=== PATIENT | female | born 1985 | race Caucasian/White ===

== ENCOUNTER 2024-03-05 11:04 | Emergency (ER) | payer MEDICAID ==
[~2024-03-05] VITALS: Ht 152.4 cm; Wt 59.1 kg
[2024-03-05 11:07] VITALS: TEMP 97.5
[2024-03-05] MEDS: metoclopramide 5 mg/ml inj IV ONE (12:27)
[2024-03-05] MEDS: diphenhydrAMINE 50 mg/ml inj IV ONE (12:27)
[2024-03-05] MEDS: normal saline 1000ML IV soln IVB ONE ×2 (12:27)
[2024-03-05] MEDS: haloperidol lactate 5mg/ml inj IM ONE (12:28)
[2024-03-05 12:38] LABS: BASOPHILS % (AUTO) 0.1 % (0-1); EOSINOPHILS % (AUTO) 0 % (0-6); HEMATOCRIT 38.6 % (35.0-45.0); HEMOGLOBIN 13.1 g/dl (12.0-16.0); LYMPHOCYTES # (AUTO) 0.9 X10'3 (1.1-4.8); MEAN CORPUSCULAR HEMOGLOBIN 29.5 PG (27.0-31.0); MEAN CORPUSCULAR HGB CONC 33.8 g/dL (33.0-36.5); MEAN CORPUSCULAR VOLUME 87.3 FL (78-98); MEAN PLATELET VOLUME 9.6 FL (7.4-10.4); MONOCYTES # (AUTO) 1.1 X10'3 (0-0.9); MONOCYTES % (AUTO) 7.5 % (2-12); NEUTROPHILS # (AUTO) 12.4 X10'3 (1.8-7.7); NEUTROPHILS % (AUTO) 86.4 % (42-75); PLATELET COUNT 307 X10'3 (140-440); RED BLOOD COUNT 4.43 X10'6 (4.20-5.60); RED CELL DISTRIBUTION WIDTH 14.4 % (11.5-14.5); WHITE BLOOD COUNT 14.4 X10'3 (4.5-11.0)
[2024-03-05 12:48] LABS: ALANINE AMINOTRANSFERASE 19 U/L (12-78); ALBUMIN 4.3 G/DL (3.4-5.0); ALBUMIN/GLOBULIN RATIO 1.2 (1.1-1.5); ALKALINE PHOSPHATASE 55 IU/L (46-116); ANION GAP 16 (8-16); ASPARTATE AMINO TRANSFERASE 12 U/L (10-37); BILIRUBIN,TOTAL 0.9 MG/DL (0.1-1.0); BLOOD UREA NITROGEN 16 MG/DL (7-18); CALCIUM 9.7 MG/DL (8.5-10.1); CHLORIDE 108 MMOL/L (99-107); CREATININE 0.94 MG/DL (0.40-0.90); GLUCOSE 159 MG/DL (70-104); LIPASE 53 U/L (16-77); POTASSIUM 3.4 MMOL/L (3.5-5.1); SODIUM 144 MMOL/L (135-145); TOTAL CARBON DIOXIDE 19.8 MMOL/L (24-32); eCRCL 57 ML/MIN; eGFR 66 ML/MIN
[2024-03-05 13:17] LABS: BILIRUBIN,URINE SMALL (Neg); CLARITY,URINE CLOUDY (Clear); COLOR,URINE YELLOW (Yellow); GLUCOSE, URINE NEGATIVE (Neg); KETONES,URINE >=80 mg/dl (Neg); LEUKOCYTE ESTERASE ,URINE NEGATIVE (Neg); NITRITES, URINE NEGATIVE (Neg); OCCULT BLOOD,URINE NEGATIVE (Neg); PROTEIN,URINE 100 mg/dl (Neg); UROBILINOGEN,URINE 0.2 E.U/dL (0.2-1.0)
[2024-03-05 13:19] LABS: UA COLLECTION TYPE NON-SPECIFIED
[2024-03-05 13:25] LABS: BACTERIA,URINE 2+ /HPF (Neg); MUCUS STRANDS FEW /LPF (Neg); RBC,URINE 0-2 /HPF (0-2); RENAL CELLS, URINE FEW /HPF; SQUAMOUS EPITHELIAL CELL,UR MANY /LPF (FEW); TRANSITIONAL EPI CELLS,URINE FEW /HPF; WBC,URINE 0-4 /HPF (0-4)
[2024-03-05] MEDS: ringers solution, lactated 1000ml IV soln IV ONE (14:59)
[2024-03-05 17:28] VITALS: BP 135/71; PULSE 66; RESP 14; O2SAT 94
== END 2024-03-05 17:45 | disposition home or self-care (01) ==
LOC: ER 11:04
DX: R11.15 Cyclical vomiting syndrome unrelated to migraine (principal); K21.9 Gastro-esophageal reflux disease without esophagitis; Z98.890 Other specified postprocedural states
CPT/HCPCS: 36415; 80053; 81001; 83690; 84145; 85025; 96361; 96372; 96374; 96375; 99285; J1200; J1630; J2765; J7030; J7120

== ENCOUNTER 2024-04-14 12:46 | Inpatient (IN) | payer MEDICAID ==
[~2024-04-14] VITALS: Ht 152.4 cm; Wt 64.4 kg
[2024-04-14] MEDS ORDERED: pantoprazole 40mg IV 80 MG in normal saline 100ml IV soln 100 ML IV ONE (14:00)
[2024-04-14 15:05] LABS: BASOPHILS % (AUTO) 0.1 % (0-1); EOSINOPHILS % (AUTO) 0 % (0-6); HEMATOCRIT 42.3 % (35.0-45.0); HEMOGLOBIN 14.1 g/dl (12.0-16.0); LYMPHOCYTES # (AUTO) 0.5 X10'3 (1.1-4.8); LYMPHOCYTES % (AUTO) 2.7 % (21-51); MEAN CORPUSCULAR HEMOGLOBIN 29.4 PG (27.0-31.0); MEAN CORPUSCULAR HGB CONC 33.3 g/dL (33.0-36.5); MEAN CORPUSCULAR VOLUME 88.2 FL (78-98); MEAN PLATELET VOLUME 8.8 FL (7.4-10.4); MONOCYTES # (AUTO) 0.4 X10'3 (0-0.9); MONOCYTES % (AUTO) 2.1 % (2-12); NEUTROPHILS # (AUTO) 16.9 X10'3 (1.8-7.7); NEUTROPHILS % (AUTO) 95.1 % (42-75); PLATELET COUNT 391 X10'3 (140-440); RED CELL DISTRIBUTION WIDTH 14.9 % (11.5-14.5); WHITE BLOOD COUNT 17.8 X10'3 (4.5-11.0)
[2024-04-14 15:15] LABS: APTT 22 SECONDS (22-32); PROTHROMBIN TIME 10.9 SECONDS (9.0-12.0)
[2024-04-14 15:22] LABS: ALBUMIN 4.6 G/DL (3.4-5.0); AMYLASE 73 U/L (25-115); ANION GAP 19 (8-16); BLOOD UREA NITROGEN 12 MG/DL (7-18); CHLORIDE 104 MMOL/L (99-107); GLUCOSE 225 MG/DL (70-104); LIPASE 18 U/L (16-77); POTASSIUM 3.7 MMOL/L (3.5-5.1); SODIUM 142 MMOL/L (135-145); TOTAL CARBON DIOXIDE 18.7 MMOL/L (24-32); eCRCL 54 ML/MIN; eGFR 61 ML/MIN
[2024-04-14] MEDS: normal saline 1000ml 1,000 ML IV ONE (15:38)
[2024-04-14] MEDS: pantoprazole 40 MG vial IV ONE (15:38)
[2024-04-14] MEDS: ondansetron/PF 4mg/2ml inj IV ONE (15:46)
[2024-04-14] MEDS: morphine 4 MG/ML inj SYRINge IV ONE (15:46)
[2024-04-14] MEDS ORDERED: iohexol 300mg/ml 100ml inj. ONE (16:07)
[2024-04-14 16:37] LABS: ALANINE AMINOTRANSFERASE 18 U/L (12-78); ALBUMIN/GLOBULIN RATIO 1.1 (1.1-1.5); ALKALINE PHOSPHATASE 80 IU/L (46-116); ASPARTATE AMINO TRANSFERASE 18 U/L (10-37); BILIRUBIN,DIRECT 0.1 MG/DL (0-0.3); BILIRUBIN,TOTAL 0.6 MG/DL (0.1-1.0); TOTAL PROTEIN 8.8 G/DL (6.4-8.2)
[2024-04-14] MEDS: HYDROmorphone inj. 0.5 MG/0.5 ML DISP.SYRIN IV ONE (16:43)
[2024-04-14] MEDS ORDERED: VENL37.58 PO (16:54)
[2024-04-14] MEDS ORDERED: magnesium sulf-water 4G/100mL 100 ML IV PRN (17:40)
[2024-04-14] MEDS ORDERED: magnesium sulf-water 2g/50mL 50 ML IV PRN (17:40)
[2024-04-14] MEDS ORDERED: magnesium Cl slow-release 64mg tablet PO PRN (17:40)
[2024-04-14] MEDS ORDERED: potassium Cl 20 mEq SR tablet PO PRN ×2 (17:40)
[2024-04-14] MEDS ORDERED: magnesium hydroxide 30ml (MOM) UD suspension PO PRN (17:40)
[2024-04-14] MEDS ORDERED: mag hydrox/Alum hydrox/simeth 30ml oral suspension PO PRN (17:40)
[2024-04-14] MEDS: normal saline 1000ml 1,000 ML IV SCH (19:54)
[2024-04-14] MEDS: docusate sod 100mg capsule PO SCH (19:55)
[2024-04-14] MEDS: pantoprazole 40 MG vial IV SCH (19:55)
[2024-04-14] MEDS ORDERED: acetaminophen 325mg tablet PO PRN (20:25)
[2024-04-14] MEDS ORDERED: morphine 2 MG/ML inj. syringe IV PRN (20:25)
[2024-04-14] MEDS: morphine 2 MG/ML inj. syringe IV PRN (20:56)
[2024-04-14] MEDS: K and/or MAG REPLACEMENT MC SCH (20:57)
[2024-04-14] MEDS ORDERED: ONDA-243 PO (22:20)
[2024-04-14 22:30] VITALS: BP 135/84; PULSE 92; RESP 19; RESP 20; TEMP 98; O2SAT 96; O2SAT 97
[2024-04-14] MEDS: metoclopramide 5 mg/ml inj IV PRN (23:44)
[2024-04-15] MEDS ORDERED: acetaminophen 325mg tablet PO PRN (00:20)
[2024-04-15] MEDS ORDERED: HYDROmorphone/PF 0.2 MG/ML SYRINGE IV PRN (00:20)
[2024-04-15] MEDS: ondansetron/PF 4mg/2ml inj IV PRN (00:28)
[2024-04-15] MEDS: acetaminophen 1,000mg/100ml IV 100 ML IV ONE (01:00)
[2024-04-15] MEDS: HYDROmorphone inj. 0.5 MG/0.5 ML DISP.SYRIN IV PRN (01:13)
[2024-04-15 02:00] VITALS: BP 135/84; PULSE 76; RESP 16; TEMP 99.3; O2SAT 97
[2024-04-15 06:00] VITALS: BP 152/79; PULSE 81; RESP 15; TEMP 98.5; O2SAT 96
[2024-04-15 07:15] LABS: BASOPHILS % (AUTO) 0.1 % (0-1); EOSINOPHILS % (AUTO) 0 % (0-6); HEMATOCRIT 36.1 % (35.0-45.0); LYMPHOCYTES # (AUTO) 1.9 X10'3 (1.1-4.8); LYMPHOCYTES % (AUTO) 12.7 % (21-51); MEAN CORPUSCULAR HEMOGLOBIN 29.8 PG (27.0-31.0); MEAN CORPUSCULAR HGB CONC 33.4 g/dL (33.0-36.5); MEAN CORPUSCULAR VOLUME 89.1 FL (78-98); MEAN PLATELET VOLUME 8.7 FL (7.4-10.4); MONOCYTES # (AUTO) 1.3 X10'3 (0-0.9); MONOCYTES % (AUTO) 8.5 % (2-12); NEUTROPHILS # (AUTO) 11.7 X10'3 (1.8-7.7); NEUTROPHILS % (AUTO) 78.7 % (42-75); PLATELET COUNT 352 X10'3 (140-440); RED BLOOD COUNT 4.05 X10'6 (4.20-5.60); WHITE BLOOD COUNT 14.9 X10'3 (4.5-11.0)
[2024-04-15 07:43] LABS: ALANINE AMINOTRANSFERASE 14 U/L (12-78); ALBUMIN 3.8 G/DL (3.4-5.0); ALBUMIN/GLOBULIN RATIO 1.1 (1.1-1.5); ALKALINE PHOSPHATASE 64 IU/L (46-116); ANION GAP 16 (8-16); ASPARTATE AMINO TRANSFERASE 15 U/L (10-37); BILIRUBIN,TOTAL 0.5 MG/DL (0.1-1.0); BLOOD UREA NITROGEN 11 MG/DL (7-18); BUN/CREATININE RATIO 14.5 (10.0-20.0); CALCIUM 8.9 MG/DL (8.5-10.1); CHLORIDE 113 MMOL/L (99-107); CREATININE 0.76 MG/DL (0.40-0.90); GLUCOSE 123 MG/DL (70-104); MAGNESIUM 2.1 MG/DL (1.5-2.4); POTASSIUM 3.4 MMOL/L (3.5-5.1); SODIUM 146 MMOL/L (135-145); TOTAL CARBON DIOXIDE 17.4 MMOL/L (24-32); TOTAL PROTEIN 7.4 G/DL (6.4-8.2); eCRCL 71 ML/MIN; eGFR 84 ML/MIN
[2024-04-15 08:00] VITALS: RESP 15; O2SAT 81
[2024-04-15] MEDS: venlafaxine XR 37.5mg cap (Q24H) PO SCH (08:00)
[2024-04-15] MEDS: potassium Cl 40MEQ/1/2NS 520ml 520 ML IV PRN (10:02)
[2024-04-15] MEDS ORDERED: metoprolol tartrate 1mg/ml inj IV ONE (10:20)
[2024-04-15 11:00] VITALS: BP 138/82; PULSE 107; RESP 11; TEMP 97.9; O2SAT 95
[2024-04-15] MEDS: metroNIDAZOLE-Flagyl 500mg/NS 100 ML IV SCH (11:38)
[2024-04-15] MEDS: diatr meglu/diatrizoate 30ml oral sol.-(3 dose) bottle PO SCH (11:54)
[2024-04-15] MEDS ORDERED: iohexol 300mg/ml 100ml inj. ONE (12:08)
[2024-04-15] MEDS: ciprofloxacin lact 400MG/200ML 200 ML IV SCH (12:17)
[2024-04-15 12:39] VITALS: RESP 18
[2024-04-15 14:14] LABS: URINE AMPHETAMINE SCREEN NEGATIVE (Neg); URINE BARBITUATE SCREEN NEGATIVE (Neg); URINE BENZODIAZEPINES SCREEN POSITIVE (Neg); URINE CANNABINOID SCREEN POSITIVE (Neg); URINE COCAINE SCREEN NEGATIVE (Neg); URINE METHADONE SCREEN NEGATIVE (Neg); URINE OPIATE SCREEN POSITIVE (Neg); URINE PHENCYCLIDINE SCREEN NEGATIVE (Neg)
[2024-04-15] MEDS ORDERED: ACET-1008 PO (14:40)
[2024-04-15] MEDS ORDERED: CIPR-260 PO (14:43)
[2024-04-15] MEDS ORDERED: METO5TAB85 PO (14:43)
[2024-04-15] MEDS ORDERED: METR375C2 PO (14:43)
[2024-04-15] MEDS ORDERED: PANT40TA54 PO (14:43)
[2024-04-15 15:53] LABS: BASOPHILS % (AUTO) 0.2 % (0-1); EOSINOPHILS % (AUTO) 0 % (0-6); HEMATOCRIT 31.1 % (35.0-45.0); HEMOGLOBIN 10.5 g/dl (12.0-16.0); LYMPHOCYTES # (AUTO) 1.5 X10'3 (1.1-4.8); LYMPHOCYTES % (AUTO) 10.8 % (21-51); MEAN CORPUSCULAR HEMOGLOBIN 29.9 PG (27.0-31.0); MEAN CORPUSCULAR HGB CONC 33.7 g/dL (33.0-36.5); MEAN CORPUSCULAR VOLUME 88.8 FL (78-98); MEAN PLATELET VOLUME 9.1 FL (7.4-10.4); MONOCYTES # (AUTO) 1.1 X10'3 (0-0.9); MONOCYTES % (AUTO) 7.9 % (2-12); NEUTROPHILS # (AUTO) 11.3 X10'3 (1.8-7.7); NEUTROPHILS % (AUTO) 81.1 % (42-75); PLATELET COUNT 273 X10'3 (140-440); RED CELL DISTRIBUTION WIDTH 15.3 % (11.5-14.5)
== END 2024-04-15 16:25 | disposition home or self-care (01) | DRG 243 ==
LOC: ER 12:47 → ED HOLD 16:22 → EDBEDREQ 21:53 → PCU 3S 22:32
PROVIDERS: ADMIT Internal Medicine; ATTEND Internal Medicine
PROC: BW211ZZ Computerized Tomography (CT Scan) of Abdomen and Pelvis using Low Osmolar Contrast (ICD-10-PCS; principal; 2024-04-14)
PROC: BW251ZZ Computerized Tomography (CT Scan) of Chest, Abdomen and Pelvis using Low Osmolar Contrast (ICD-10-PCS; 2024-04-15)
DX: K21.01 Gastro-esophageal reflux disease with esophagitis, with bleeding (principal); N17.0 Acute kidney failure with tubular necrosis; K22.6 Gastro-esophageal laceration-hemorrhage syndrome; D72.825 Bandemia; K58.1 Irritable bowel syndrome with constipation; Z87.11 Personal history of peptic ulcer disease; Z98.891 History of uterine scar from previous surgery
CPT/HCPCS: 36415; 71045; 71260; 74177; 80048; 80053; 80076; 80305; 82150; 83605; 83690; 83735; 84145; 85025; 85610; 85651; 85730; 86885; 86900; 86901; 87081; 93005; 99285; G0378; J0131; J0744; J1171; J2270; J2405; J2470; J2765; J3480; J3490; J7030; Q9963; Q9967